=== PATIENT | female | born 1965 | race Caucasian/White ===

== ENCOUNTER 2017-05-24 14:53 | Outpatient (CLI) | payer MEDICAID ==
[2017-05-24 17:32] LABS: BASOPHILS % (AUTO) 0.3 %; EOSINOPHILS % (AUTO) 0.7 %; HCT - HEMATOCRIT 42.6 % (37.0-47.0); HGB - HEMOGLOBIN 14.5 g/dL (12.0-16.0); LYMPHOCYTES # (AUTO) 1.7 10^3/uL (1.5-3.5); LYMPHOCYTES % (AUTO) 31.8 %; MEAN CORPUSCULAR HEMOGLOBIN 31.5 pg (27.0-31.0); MEAN CORPUSCULAR HGB CONC 34.1 g/dL (32.0-36.0); MEAN CORPUSCULAR VOLUME 92.3 fL (81.0-99.0); MEAN PLATELET VOLUME 7.8 fL (7.9-10.8); MONOCYTES # (AUTO) 0.4 10^3/uL (0.0-1.0); MONOCYTES % (AUTO) 7.6 %; NEUTROPHILS # (AUTO) 3.1 10^3/uL (1.5-6.6); NEUTROPHILS % (AUTO) 59.6 %; NUCLEATED RED BLOOD CELLS AUTO 0.1 /100WBC; RED BLOOD COUNT 4.61 10^6/uL (4.20-5.40); RED CELL DISTRIBUTION WIDTH 13.3 % (12.0-15.0); UNCORRECTED WHITE BLOOD COUNT 5.2 x10^3/uL; WHITE BLOOD COUNT 5.2 x10^3/uL (4.8-10.8)
[2017-05-24 17:44] LABS: BILIRUBIN,URINE NEGATIVE (NEGATIVE)
[2017-05-24 17:45] LABS: UA CHARGE (STRIP ONLY) YES; UR CULTURE IF IND NOT INDICATED
[2017-05-24 18:08] LABS: ALBUMIN/GLOBULIN RATIO 1.5 (1.0-2.2); BILIRUBIN,TOTAL 0.6 mg/dL (0.2-1.0); BUN - BLOOD UREA NITROGEN 8 mg/dL (6-20); CALCIUM 8.8 mg/dL (8.5-10.3); CARBON DIOXIDE - CO2 25 mmol/L (21-32); CHLORIDE 105 mmol/L (101-111); CREATININE 0.9 mg/dL (0.4-1.0); GFR - MDRD 66 (>89); GLUCOSE 99 mg/dL (70-100); POTASSIUM 3.9 mmol/L (3.5-5.0); SODIUM 136 mmol/L (135-145); TOTAL PROTEIN 7.2 g/dL (6.7-8.2)
== END 2017-05-24 14:54 | disposition home or self-care (01) ==
LOC: LAB.F 14:53
PROVIDERS: ATTEND Physician Assistant Medical
DX: R63.0 Anorexia (principal); R39.11 Hesitancy of micturition; R35.0 Frequency of micturition; N39.0 Urinary tract infection, site not specified; K59.00 Constipation, unspecified; R53.83 Other fatigue
CPT/HCPCS: 36415; 80053; 81001; 81003; 84443; 85025; 87086

== ENCOUNTER 2017-05-26 14:45 | Outpatient (CLI) | payer MEDICAID | END 2017-05-26 14:46 | disposition home or self-care (01) | LOC: LAB.R 14:45 | PROVIDERS: ATTEND Physician Assistant Medical | DX: K59.00 Constipation, unspecified (principal); R63.0 Anorexia; R14.0 Abdominal distension (gaseous) | CPT/HCPCS: 87045; 87046; 87177; 87209 ==

== ENCOUNTER 2020-07-07 19:09 | Outpatient (CLI) | payer MEDICAID ==
--- OUTSIDE RECORDS SUMMARY | 2020-07-15 00:29 | EXTERNAL MEDICAL SUMMARY RPT | Continuity of Care Document ---
:1965 Demographics Phone Unavailable Preferred Language Nepali Marital Status Unknown Roman Catholic Affiliation Unknown Race Unknown Ethnic Group Unknown Author Organization [facility] Address [address] [phone] Phone Care Team Providers Name Role Phone Gabriela Flowers Unavailable Unavailable Problems date description facility 2017-05-24 14:53 CONSTIPATION, UNSPECIFIED [facility] 2017-05-24 14:53 URINARY TRACT INFECTION, SITE NOT [facility] SPECIFIED 2017-05-24 14:53 FREQUENCY OF MICTURITION [facility] 2017-05-24 14:53 HESITANCY OF MICTURITION [facility] 2017-05-24 14:53 OTHER FATIGUE [facility] 2017-05-24 14:53 ANOREXIA [facility] 2017-05-26 14:45 CONSTIPATION, UNSPECIFIED [facility] 2017-05-26 14:45 ABDOMINAL DISTENSION (GASEOUS) [facility] 2017-05-26 14:45 ANOREXIA [facility] 2017-05-29 00:00 ABDOMINAL DISTENSION (GASEOUS) [facility] Social History date description facility [id number]
== END 2020-07-07 19:10 | disposition expired ==
LOC: EMS 19:09
PROVIDERS: ATTEND Surgery
DX: S01.83XA Puncture wound without foreign body of other part of head, initial encounter (principal); Y93.89 Activity, other specified; Y92.818 Other transport vehicle as the place of occurrence of the external cause